=== PATIENT | male | born 1975 | race Caucasian/White ===

== ENCOUNTER 2016-12-15 11:55 | Emergency (ER) | payer MEDICARE, OTHER ==
[~2016-12-15] VITALS: Ht 167.6 cm; Wt 79.0 kg
[~2016-12-15 11:55] MED LIST: BACT800T5 PO; CARV6.252 PO; CEPH500C3 PO; GABA600T PO; IBUP800T23 PO; ULTR50TA PO
[2016-12-15 12:05] VITALS: BP 157/100; PULSE 105; RESP 18; TEMP 98.5; O2SAT 98
[2016-12-15] MEDS ORDERED: GABA800T PO (12:18)
[2016-12-15] MEDS ORDERED: CARV6.252 PO (12:18)
[2016-12-15] MEDS ORDERED: IBUP800T23 PO (12:19)
--- NOTE | 2016-12-15 13:06 | PD ---
HPI Chief Complaint: Skin Problem Time Seen by Provider: 13:03 Travel History International Travel<30 days: No Contact w/Intl Traveler<30days: No Traveled to known affect area: No History of Present Illness HPI Patient presents with concerns of an infection in his left foot. Reports multiple surgeries in his left lower extremity. Denies nausea vomiting diarrhea or fever. Denies any chest pain shortness of breath urinary or bowel symptoms. States he was playing with his dog when his dog caught his distal lateral foot. States he cleaned the wound well. Reports that over the last few days it is increased in pain and erythema. Denies drainage. Unable to recall tetanus. 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 ) Immunizations Current: No Tetanus Vaccination: Unknown Influenza Vaccination: No Social History Alcohol Use: No ("Not really") Tobacco Use: Yes (1/2 PPD) Substance Use: No Allergies-Medications (Allergen,Severity, Reaction): Coded Allergies: Influenza Virus Vaccines (Unverified Allergy, Severe, Fatigue, 12/15/16) DUE TO SAMARIA ALVES *MDRO Multi-Drug Resistant Organism (Verified Allergy, Unknown, 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 Reported Meds & Prescriptions Reported Meds & Active Scripts Active Reported Ibuprofen 800 Mg Tab 800 Mg PO BID Carvedilol 6.25 Mg Tab 6.25 Mg PO BID Gabapentin 800 Mg Tab 800 Mg PO TID Review of Systems General / Constitutional: No: Fever Eyes: No: Visual changes HENT: No: Headaches Cardiovascular: No: Chest Pain or Discomfort Respiratory: No: Shortness of Breath Gastrointestinal: No: Abdominal Pain Genitourinary: No: Dysuria Musculoskeletal: No: Pain Skin: No Rash Neurologic: No: Weakness Psychiatric: No: Depression Endocrine: No: Polydipsia Hematologic/Lymphatic: No: Easy Bruising Physical Exam Narrative GENERAL: Well-nourished, well-developed patient. SKIN: Focused skin assessment warm/dry. HEAD: Normocephalic. EYES: No scleral icterus. No injection or drainage. NECK: Supple, trachea midline. No JVD or lymphadenopathy. CARDIOVASCULAR: Regular rate and rhythm without murmurs, gallops, or rubs. RESPIRATORY: Breath sounds equal bilaterally. No accessory muscle use. GASTROINTESTINAL: Abdomen soft, non-tender, nondistended. MUSCULOSKELETAL: No cyanosis, or edema. BACK: Nontender without obvious deformity. No CVA tenderness. Examination left foot reveals multiple surgical scars in the lower extremity the lateral distal foot with a abrasion with mild erythema nondraining Data Data Last Documented VS Vital Signs Date Time Temp Pulse Resp B/P (MAP) Pulse Ox O2 Delivery O2 Flow Rate FiO2 12/15/16 12:05 98.5 105 18 157/100 (119) 98 MDM Medical Decision Making Medical Screen Exam Complete: Yes Emergency Medical Condition: Yes Differential Diagnosis Cellulitis, abscess, foreign body Narrative Course Assessment and plan discussed with patient at bedside. Tetanus updated Diagnosis Primary Impression: Cellulitis Qualified Codes: L03.116 - Cellulitis of left lower limb Patient Instructions: General Instructions Additional Instructions: Encouraged antibacterial soap and water 2 times per day. Encouraged to follow- up with PCP. Encouraged to return to emergency room with any onset of new symptoms. Med/Other Pt SpecificInfo: Prescription(s) given Scripts Hydrocodone-Acetaminophen (Hydrocodone-Acetaminophen) 5-325 mg Tab 1 TAB PO Q4H Y for PAIN, #15 TAB 0 Refills Prov: Clarke Houston MD 12/15/16 Amoxicillin-Clavulanate (Augmentin) 875-125 Mg Tab 1 TAB PO BID for Infection, #10 TAB 0 Refills Prov: Clarke Houston MD 12/15/16 Disposition: 01 DISCHARGE HOME Condition: Good Clarke Houston MD Dec 15, 2016 13:06
[2016-12-15] MEDS ORDERED: AUGM875T3 PO (13:08)
[2016-12-15] MEDS ORDERED: HYDR-3516 PO (13:11)
[2016-12-15] MEDS ORDERED: DIPHTH/TETANUS/ACEL PERTUSSIS (BOOSTER) 0.5 ML VIAL/PFS IM ONE (13:15)
[2016-12-15] MEDS ORDERED: TETANUS/DIPHTHERIA TOXOID ADULT 0.5 ML VIAL IM ONE (13:15)
== END 2016-12-15 13:24 | disposition home or self-care (01) ==
LOC: PHED 11:55
DX: L03.116 Cellulitis of left lower limb (principal); I10 Essential (primary) hypertension; F17.200 Nicotine dependence, unspecified, uncomplicated; Z23 Encounter for immunization
CPT/HCPCS: 90471; 90714

== ENCOUNTER 2017-03-17 17:51 | Emergency (ER) | payer MEDICARE, OTHER ==
[2017-03-17] MEDS: ONDANSETRON ODT 4 MG TAB PO (19:24)
[2017-03-17] MEDS: traMADol HCL 50 MG TAB PO (20:10)
== END 2017-03-17 20:47 | disposition home or self-care (01) ==
LOC: PHED 17:51
DX: B34.9 Viral infection, unspecified (principal); F17.210 Nicotine dependence, cigarettes, uncomplicated
CPT/HCPCS: 87081; 87804; 87804-59; 87880; 99284